=== PATIENT | male | born 1955 | race Caucasian/White ===

== ENCOUNTER 2017-11-19 12:12 | Emergency (ER) | payer MEDICAID ==
[~2017-11-19] VITALS: Ht 162.6 cm; Wt 84.0 kg
[~2017-11-19 12:12] MED LIST: AMLO10TA80; CAPT100T2; FOLI-43; FURO40TA5; GLYB5TAB7; NITR25PO2; PHEN100C4; SUCR1TAB
[2017-11-19 12:44] VITALS: BP 104/54
[2017-11-19] MEDS ORDERED: ACETAMINOPHEN 500MG TABLET PO ONE (12:45)
[2017-11-19] MEDS ORDERED: IBUPROFEN 600MG TABLET PO ONE (12:45)
== END 2017-11-19 12:47 | disposition home or self-care (01) ==
LOC: ER 12:26
DX: L03.011 Cellulitis of right finger (principal)
CPT/HCPCS: 99283